=== PATIENT | male | born 1965 | race African-American/Black ===

== ENCOUNTER 2018-01-17 13:20 | Emergency (ER) | payer OTHER ==
[~2018-01-17] VITALS: Ht 195.6 cm; Wt 121.2 kg
[2018-01-17 14:33] LABS: HEMATOCRIT 40.5 % (38.0-50.0); HEMOGLOBIN 13.8 G/DL (12.5-16.6); MCH 29.2 PG (29.0-34.0); MCHC 34.1 G/DL (30.0-36.0); MCV 85.6 FL (86-99); PLATELET COUNT 174 K/uL (156-360); RBC DIS.WIDTH-SD 37.7 % (39-53); RED BLOOD COUNT 4.73 M/uL (4.00-5.50); WHITE BLOOD COUNT 4.8 K/uL (4.1-10.2)
[2018-01-17 14:45] LABS: CHLORIDE 109 mEq/L (99-109); POTASSIUM 4.1 mEq/L (3.7-5.4); SODIUM 141 mEq/L (136-147)
[2018-01-17 14:46] LABS: GLUCOSE 108 mg/dL (70-99)
[2018-01-17 14:50] LABS: CREATININE 0.6 mg/dL (0.6-1.3)
[2018-01-17 14:51] LABS: UREA NITROGEN (BUN) 14 mg/dL (9-23)
[2018-01-17 14:52] LABS: GFR ESTIMATE (CALCULATED) > 59 mL/min/ (58.99-99999)
[2018-01-17 14:53] LABS: TROP-I INTERPRETATION NEGATIVE; TROPONIN-I 0.02 ng/mL (0.0-0.30)
[2018-01-17 17:19] VITALS: BP 150/78
== END 2018-01-17 17:21 | disposition home or self-care (01) ==
LOC: EME 13:20
DX: R07.9 Chest pain, unspecified (principal); I10 Essential (primary) hypertension
CPT/HCPCS: 71046; 80048; 84484; 85027; 93005; 99281; 99283